=== PATIENT | male | born 1945 | race Caucasian/White ===

== ENCOUNTER → 2016-11-08 | Outpatient (CLI) | payer MEDICARE, OTHER ==
[2014-06-02 09:45] VITALS: BP 142/87
[~2016-11-08] MED LIST: CELE200C PO; CHLO1CAP50 PO; DOXA1TAB2 PO; OMEP20CA9 PO
--- NOTE | 2016-11-08 15:35 | RAD ---
Chest, 2 views, 11/08/2016: History: Cough, multiple myeloma Comparison is made to a study from 03/05/2016. The heart size and pulmonary vascularity are normal. No pulmonary infiltrates are seen. There is no evidence of pleural fluid. Mild spurring is present in the spine. IMPRESSION: No acute cardiopulmonary abnormality is detected.
== END | disposition home or self-care (01) ==
LOC: RAD 15:11
PROVIDERS: ATTEND Internal Medicine Hematology & Oncology
DX: C90.01 Multiple myeloma in remission (principal); R05 Cough
CPT/HCPCS: 71020

== ENCOUNTER → 2017-04-09 | Outpatient (CLI) | payer MEDICARE, OTHER ==
[2014-06-02 09:45] VITALS: BP 142/87
--- NOTE | 2017-04-09 16:36 | CARD ---
APPROVED REPORT EXAM: Two-dimensional and M-mode echocardiogram with Doppler and color Doppler. Other Information Quality : Average Rhythm : NSR INDICATION Fatigue Hypertension/HCVD 2D DIMENSIONS RVDd3.5 (2.9-3.5cm)Left Atrium(2D)3.6 (1.6-4.0cm) IVSd1.1 (0.7-1.1cm)Aortic Root(2D)3.6 (2.0-3.7cm) LVDd5.2 (3.9-5.9cm)LVOT Diameter2.3 (1.8-2.4cm) PWd1.1 (0.7-1.1cm)LVDs3.8 (2.5-4.0cm) FS (%) 24.0 %SV67.3 ml LVEF(%)50.2 (>50%) Aortic Valve AoV Peak Homer.90.4cm/sAoV VTI16.3cm AO Peak GR.3.3mmHgLVOT Peak Homer.84.6cm/s LVOT VTI 15.75cmAO Mean GR.2mmHg DARA (VMAX)3.12hi9RWZ (VTI)4.13cm2 Mitral Valve MV E Awfetfhk46.4cm/sMV DECEL GNGD655qg MV A Dyzmdpce60.6cm/sMV WDR09tg E/A Ratio0.8MV A Madbkwkd890gz MVA (PHT)2.27cm2 TDI E/Lateral E'8.2E/Medial E'8.9 Pulmonary Valve PV Peak Sorpvywe082.9cm/sPV Peak Grad.4mmHg Tricuspid Valve TR P. Adprcrqd638nw/sRAP JPVIQJIH8kkSz TR Peak Gr.46gsGyMSFM36uaZd Pulmonary Vein S1 Zzmwbact65.9cm/sD2 Zmzeayqb75.8cm/s LEFT VENTRICLE The left ventricle is normal size. There is normal left ventricular wall thickness. Left ventricle sy stolic function is normal. The Ejection Fraction is 50-55%. There is normal LV segmental wall motion. Tissue Doppler imaging reveals mild left ventricular diastolic dysfunction. Transmitral Doppler flow pattern is Grade I-abnormal relaxation pattern. There is no ventricular septal defect visualized. RIGHT VENTRICLE The right ventricle is normal size. The right ventricular systolic function is normal. ATRIA The left atrium size is normal. The right atrium size is normal. The interatrial septum is intact wit h no evidence for an atrial septal defect or patent foramen ovale as noted on 2-D or Doppler imaging. AORTIC VALVE The aortic valve is normal in structure and function. The aortic valve is trileaflet. Doppler and Col or Flow revealed no significant aortic regurgitation. There is no significant aortic valvular stenosi s. MITRAL VALVE The mitral valve is normal in structure and function. There is no mitral valve stenosis. Doppler and Color Flow revealed no mitral valve regurgitation noted. TRICUSPID VALVE The tricuspid valve is normal in structure and function. Doppler and Color Flow revealed trace tricus pid regurgitation. The PA pressure was estimated at 21 mmHg. There is no tricuspid valve stenosis. PULMONIC VALVE The pulmonic valve is not well visualized. Doppler and Color Flow revealed no pulmonic valvular regur gitation. There is no pulmonic valvular stenosis. GREAT VESSELS The aortic root is normal in size. The ascending aorta is normal in size. Normal pulmonary venous sierra w (Doppler). The IVC is normal in size and collapses >50% with inspiration. PERICARDIAL EFFUSION There is no evidence of significant pericardial effusion. Critical Notification Critical Value: No <Conclusion> Left ventricle systolic function is normal. The Ejection Fraction is 50-55%. There is normal LV segmental wall motion. Doppler and Color Flow revealed trace tricuspid regurgitation. The PA pressure was estimated at 21 mmHg. There is no evidence of significant pericardial effusion.
== END | disposition home or self-care (01) ==
LOC: ECHO 13:33
PROVIDERS: ATTEND Family Medicine
DX: I10 Essential (primary) hypertension (principal); I07.1 Rheumatic tricuspid insufficiency
CPT/HCPCS: 93306

== ENCOUNTER → 2017-09-09 | Outpatient (CLI) | payer MEDICARE, OTHER ==
[2014-06-02 09:45] VITALS: BP 142/87
--- NOTE | 2017-09-09 11:28 | RAD ---
Indication: Cough and shortness of air. Time of exam 11:20 AM Correlation is made with prior study from 11/08/2016. The heart size is stable. The lungs are hyperinflated consistent with COPD. There are chronic interstitial changes present. No parenchymal consolidation is identified. No effusion or pneumothorax is seen. Impression: COPD. No acute feature is detected.
== END | disposition home or self-care (01) ==
LOC: RAD 10:55
PROVIDERS: ATTEND Internal Medicine Critical Care Medicine
DX: J44.9 Chronic obstructive pulmonary disease, unspecified (principal)
CPT/HCPCS: 71020

== ENCOUNTER → 2017-10-08 | Outpatient (CLI) | payer MEDICARE, OTHER | END | disposition home or self-care (01) | LOC: CT 10:32 | DX: R05 Cough (principal); C90.00 Multiple myeloma not having achieved remission | CPT/HCPCS: 71250 ==

== ENCOUNTER → 2017-11-13 | Outpatient (CLI) | payer MEDICARE, OTHER | END | disposition home or self-care (01) | LOC: CT 10:39 | DX: C90.00 Multiple myeloma not having achieved remission (principal); J34.2 Deviated nasal septum; R05 Cough | CPT/HCPCS: 70486 ==

== ENCOUNTER → 2018-01-21 | Outpatient (CLI) | payer MEDICARE, OTHER | END | disposition home or self-care (01) | LOC: KCIC CT 10:01 | DX: J32.0 Chronic maxillary sinusitis (principal) | CPT/HCPCS: 70486 ==

== ENCOUNTER 2018-03-12 10:54 | Day surgery (SDC) | payer MEDICARE, OTHER ==
[2018-03-12] MEDS: IV RINGERS,LACTATED 1000ML 1,000 ML IV (07:00)
[~2018-03-12 10:54] MED LIST changes: -CELE200C PO; -CHLO1CAP50 PO; -DOXA1TAB2 PO; +EPINEPHrine NASAL 30 MG/30 ML BOTTLE; +GELATIN SPONGE SIZE 100.; +LIDOCAINE 1% PF 2 ML VIAL. ID; +MORPHINE SULFATE 4 MG/ML DISP.SYRIN. IV; +MUPIROCIN 2 % NASAL OINTMENT 22GM TUBE. NS; +NEOMY/BACITR/POLYMYXIN OINT PACKET. TP; -OMEP20CA9 PO; +ONDANSETRON PF 4 MG/2 ML VIAL. IV; +PHENYLEPHRINE 0.25% NASAL SPRAY 15ML BOTTLE. NS; +TRIAMCINOLONE ACETONIDE 40 MG/ML VIAL. IM; +fentaNYL PF VIAL 100 MCG/2 ML VIAL IV
[2018-03-12] MEDS ORDERED: FAMOTIDINE 20 MG/2 ML VIAL (11:23)
[2018-03-12] MEDS ORDERED: ONDANSETRON PF 4 MG/2 ML VIAL. (11:23)
[2018-03-12] MEDS ORDERED: LIDOCAINE 2% PF Vial for OR 5 ML VIAL. (11:23)
[2018-03-12] MEDS ORDERED: DEXAMETHASONE SOD PHOS 20 MG/5 ML VIAL. (11:23)
[2018-03-12] MEDS ORDERED: PROPOFOL 20 ML IV (11:23)
[2018-03-12] MEDS ORDERED: SUCCINYLCHOLINE 200 MG/10 ML VIAL. (11:24)
[2018-03-12] MEDS ORDERED: fentaNYL PF VIAL 100 MCG/2 ML VIAL (11:24)
[2018-03-12] MEDS ORDERED: ROCURONIUM 50 MG/5 ML VIAL. (11:24)
[2018-03-12] MEDS ORDERED: MIDAZOLAM HCL/PF 2 MG/2 ML VIAL. (11:24)
[2018-03-12] MEDS ORDERED: EPINEPHrine VIAL 30 MG/30 ML VIAL (12:21)
[2018-03-12] MEDS ORDERED: EPINEPHrine NASAL 30 MG/30 ML BOTTLE (12:22)
[2018-03-12] MEDS: OXYMETAZOLINE 0.05% NASAL SPRAY 30ML BOTTLE. NS (12:23)
[2018-03-12] MEDS: LIDOCAINE 1%/EPI 1:100,000 30 ML VIAL. IJ (12:23)
[2018-03-12] MEDS ORDERED: ePHEDrine PF IN SALINE 50 MG/5 ML DISP.SYRIN IV (12:25)
[2018-03-12] MEDS: EPINEPHrine NASAL 30 MG/30 ML BOTTLE (13:28)
[2018-03-12] MEDS ORDERED: SEVOFLURANE > 120 MINUTES. IH (13:50)
[2018-03-12] MEDS: fentaNYL PF VIAL 100 MCG/2 ML VIAL IV ×3 (14:13→15:21)
[2018-03-12] MEDS: PROCHLORPERAZINE 10 MG/2 ML VIAL. IV (14:13)
[2018-03-12] MEDS: oxyCODONE/APAP 5/325 1 TAB TABLET PO (15:16)
== END 2018-03-12 16:05 | disposition home or self-care (01) ==
LOC: SURG 10:54
DX: J34.2 Deviated nasal septum (principal); J34.3 Hypertrophy of nasal turbinates; J32.0 Chronic maxillary sinusitis; Z79.82 Long term (current) use of aspirin; Z79.899 Other long term (current) drug therapy; Z88.1 Allergy status to other antibiotic agents; I10 Essential (primary) hypertension; J44.9 Chronic obstructive pulmonary disease, unspecified; Z87.19 Personal history of other diseases of the digestive system; Z90.49 Acquired absence of other specified parts of digestive tract; K21.9 Gastro-esophageal reflux disease without esophagitis; M19.90 Unspecified osteoarthritis, unspecified site; F17.200 Nicotine dependence, unspecified, uncomplicated; Z85.79 Personal history of other malignant neoplasms of lymphoid, hematopoietic and related tissues
CPT/HCPCS: 30130; 87071; 87075; 87205; A7015; J0171; J0330; J0690; J0780; J1100; J2250; J2405; J2704; J3010; J3301; J3490; S0028

== ENCOUNTER → 2018-04-29 | Outpatient (CLI) | payer MEDICARE, OTHER | END | disposition home or self-care (01) | LOC: KCIC 10:51 | DX: R06.02 Shortness of breath (principal); J44.9 Chronic obstructive pulmonary disease, unspecified; J32.9 Chronic sinusitis, unspecified; K21.9 Gastro-esophageal reflux disease without esophagitis; Z87.19 Personal history of other diseases of the digestive system; Z85.79 Personal history of other malignant neoplasms of lymphoid, hematopoietic and related tissues; Z90.49 Acquired absence of other specified parts of digestive tract | CPT/HCPCS: 71046 ==

== ENCOUNTER → 2018-05-04 | Outpatient (CLI) | payer MEDICARE, OTHER | END | disposition home or self-care (01) | LOC: ECHO 08:50 | DX: R06.09 Other forms of dyspnea (principal); R53.83 Other fatigue; J44.9 Chronic obstructive pulmonary disease, unspecified; J32.9 Chronic sinusitis, unspecified; K21.9 Gastro-esophageal reflux disease without esophagitis; Z87.19 Personal history of other diseases of the digestive system; Z90.49 Acquired absence of other specified parts of digestive tract; Z87.891 Personal history of nicotine dependence; Z85.79 Personal history of other malignant neoplasms of lymphoid, hematopoietic and related tissues | CPT/HCPCS: 93306 ==

== ENCOUNTER → 2019-04-19 | Outpatient (CLI) | payer MEDICARE, OTHER ==
[~2019-04-19] MED LIST changes: +ACYC400T PO; +AMOX1TAB61 PO; +ASPI325T8 PO; +CELE200C PO; +CHLO1CAP50 PO; +DOCU-109 PO; +DOXA1TAB2 PO; -EPINEPHrine NASAL 30 MG/30 ML BOTTLE; -GELATIN SPONGE SIZE 100.; +HYDR12.58 PO; -LIDOCAINE 1% PF 2 ML VIAL. ID; -MORPHINE SULFATE 4 MG/ML DISP.SYRIN. IV; -MUPIROCIN 2 % NASAL OINTMENT 22GM TUBE. NS; -NEOMY/BACITR/POLYMYXIN OINT PACKET. TP; +OMEP20CA10 PO; +ONDA4TAB10 SL; -ONDANSETRON PF 4 MG/2 ML VIAL. IV; +OXYC1TAB15 PO; -PHENYLEPHRINE 0.25% NASAL SPRAY 15ML BOTTLE. NS; +SODI1PAC12 NS; +SPIR25TA5 PO; -TRIAMCINOLONE ACETONIDE 40 MG/ML VIAL. IM; -fentaNYL PF VIAL 100 MCG/2 ML VIAL IV
--- NOTE | 2019-04-22 10:08 | KCIC ---
Cervical spine radiograph 04/22/2019 INDICATION: Neck pain and right shoulder pain. COMPARISON: None available. TECHNIQUE: AP, lateral, odontoid and Fuchs view of the cervical spine are provided. FINDINGS: Cervical spine is visualized from the craniocervical junction through cervicothoracic junction. There is straightening of the normal cervical lordosis. There is minimal anterolisthesis of C3 on C4. There is minimal retrolisthesis of C5 on C6 and C6 on C7. Vertebral body heights are maintained. No acute fracture is identified. There is moderate facet arthropathy in the mid cervical spine. There is moderate to advanced disc height loss at C5-C6 and C6-C7 with endplate sclerosis and remodeling. Marginal osteophytosis is noted at C3-C4, C4-C5, C5-C6 and C6-C7. Spinous processes appear intact. There is no prevertebral soft tissue swelling. Lateral masses of C1 articulate appropriately with the C2 vertebral body. Dens appears intact. There is moderate uncovertebral joint disease at C4-C5 and C5-C6. Advanced uncovertebral joint disease identified at C6-C7. Partial visualization of a right chest wall catheter. IMPRESSION: Moderate to advanced cervical spondylosis, most prominent at C5-C6 and C6-C7. Findings are described in detail above. Electronically signed by: Fidelina Mario MD (04/22/2019 10:05 AM) [id number]
== END | disposition home or self-care (01) ==
LOC: KCIC 11:26 → MERGE 11:26
PROVIDERS: ATTEND Family Medicine
DX: M47.812 Spondylosis without myelopathy or radiculopathy, cervical region (principal); M12.88 Other specific arthropathies, not elsewhere classified, other specified site
CPT/HCPCS: 72040

== ENCOUNTER → 2019-07-01 | Outpatient (CLI) | payer MEDICARE, OTHER ==
[2018-03-12 15:44] VITALS: BP 119/80
[~2019-07-01] MED LIST changes: +CALC200T19 PO; +DEXA4TAB63 PO; +EMLA; +ERGO500027 PO; +GABA-585 PO; +HYDR-2761 PO; +IOHEXOL 180 MG/ML 10 ML VIAL. ONE; +MONT10TA49 PO; +OMEP40CA5 PO; +PRED20TA PO; +SACC250C PO; +TIZA4TAB2 PO; +ZOLP5TAB PO; +loratidine; +methylPREDNISolone ACETATE 40 MG/ML VIAL. ONE; +methylPREDNISolone ACETATE 80 MG/ML VIAL. ONE
--- NOTE | 2019-07-02 03:19 | PAIN ---
DATE OF SERVICE: 07/01/2019 INITIAL CONSULTATION FOR PAIN CLINIC CHIEF COMPLAINT: Neck and right upper extremity pain. HISTORY OF PRESENT ILLNESS: This is a 73-year-old male, who presents with history of pain in the base of neck and right upper extremity, going on since April of this year. The result is not the result of any specific injury or action he is aware of, but it has been getting worse with time. Weightbearing, repetitive motion of the right upper extremity using his arm over his head, reaching for items and especially with bearing weight or repetitive motions, be even driving a car with his right hand. The patient reports it does not awaken him from sleep at night, does not affect his bowel or bladder control or his ability to walk, but pain has been getting worse with time. He has had some massage therapies done, physical therapy done as well, which helps temporarily, but does not decrease the pain persistently. The patient has been taking hydrocodone, which has been helping significantly, taking at least one of these a day. The patient reports a disability rating from 0-10, 10 being the worst, as 0 in most categories, 1 with recreation and social activity, 0 in life-support activity, self-care, sexual behavior and family home responsibilities and occupation activities. The patient did have an MRI scan of the cervical spine showing C6-C7 posterior disk osteophyte complex with a central disk protrusion, moderate uncovertebral joint disease with jyqj-id-docnyzzy right and mild left neural foraminal stenosis at C5-C6 showing posterior disk osteophyte complex with central disk extrusion as well and mild spinal canal stenosis exacerbated by ligamentum flavum enfolding mild to moderate bilaterally. PAST MEDICAL HISTORY: Significant for shortness of breath, hypertension, hearing loss, arthritis, history of multiple myeloma, status post bone marrow transplant and chemotherapy. SURGERY: Include left knee surgery, hernias repaired bilaterally in 2004 as well as cholecystectomy in 2004. CURRENT MEDICATIONS: Include Ambien, prednisone, acyclovir, spironolactone, Augmentin, Florastor, tizanidine, montelukast, hydrocodone, gabapentin, vitamin D, dexamethasone, omeprazole, Celebrex, Decadron and calcium. ALLERGIES: The patient has no known drug allergies. FAMILY HISTORY: Kidney disease in the patient's father, heart disease in the patient's mother, heart disease and cancer in siblings as well. SOCIAL HISTORY: The patient does not drink alcohol, does not use any illegal, illicit or recreational drugs. Does not smoke, quit in 1979. REVIEW OF SYSTEMS: The patient's review of systems is positive for those items mentioned in history of present illness. All systems reviewed and otherwise negative. It is complete, full and well documented on the patient's chart. PHYSICAL EXAMINATION: VITAL SIGNS: The patient's blood pressure is 141/95, pulse 62, respirations are 17, temperature is 98.2 degrees Fahrenheit, height is 5 feet 9 inches and weight is 162 pounds. GENERAL: The patient is awake, alert, oriented, appropriate, has very pleasant demeanor. HEENT: Head shows normocephalic, atraumatic. Extraocular movements are intact and symmetrical. Oral cavity: Mucous membranes are moist and pink. Dentition is intact. NECK: Shows anterior throat supple without palpable lymphadenopathy noted. Swallow reflex symmetrical. CHEST: Shows normal on inspection. Breath sounds clear to auscultation bilaterally. HEART: Shows S1, S2 clear. ABDOMEN: Soft, nontender, nondistended. No palpable organomegaly is noted. No rebound or guarding demonstrated. BACK: Shows spine grossly in midline, normal-appearing cervical lordotic curvature and thoracic kyphotic curvature. Cervical paraspinous muscle shows symmetrical on inspection with palpation shows some moderate tenderness in the inferior aspect of the cervical paraspinous musculature, only on the right though and only in the inferior aspect and into the superior medial trapezius on the right, but without trigger points, without radiation. The patient has good rotational motion of the cervical spine, both laterally greater than 45 degrees, closer to 90 degrees right and left as well as full extension, full forward flexion without exacerbation of pain. EXTREMITIES: The patient's upper extremities show deep tendon reflexes 2+ in the biceps and triceps tendons. 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 Peripheral pulses are 2+ radial in distribution. No peripheral edema is noted. Shoulder shrug is strong and intact without loss of strength on resistance with some minor pain in the base of the neck on the right side only with resistance. This is true with abduction at 90 degrees, but without loss of strength as well. SKIN: Shows warm and dry, good turgor. No edema. No sores, rashes or bruises throughout. IMPRESSION: 1. This is a 73-year-old male with history of pain in the base of the neck and right upper extremity in a radicular fashion. 2. MRI scan of cervical spine as noted. 3. History of multiple myeloma. 4. Hypertension. 5. Arthritis. PLAN: Options were discussed with the patient, including conservative medical managements, physical therapies and interventional techniques. He would like to pursue interventional techniques. We discussed a cervical epidural steroid injection using description as well as anatomical models to describe the procedure. Risks were then discussed, including but not limited to bleeding, infection, possibility of epidural hematoma, subsequent neurological compromise, dural puncture, headaches, spinal cord and/or nerve damage, side effects of steroid medication and poor results regarding pain control. The patient understands and wished to proceed. The patient will return to the clinic in approximately 2 weeks for followup. He is counseled on return appointment, activity level and side effects to be aware of. DIAGNOSES: Cervical radiculopathy with cervical degenerative disk disease. PROCEDURE: Cervical epidural steroid injection, translaminar approach C6-C7 level using C-arm fluoroscopic guidance under sterile prep and drape using local anesthetic. MEDICATION INJECTED: A total of 120 mg Depo-Medrol plus 5 mL of preservative-free normal saline and 2 mL of contrast. CONDITION AT DISCHARGE: Stable. The patient tolerated the procedure well, had no complications. JAROD FABIAN MD DR: RADHA/lola JOB#: [id number] / [id number] GEO Brunson MD
== END ==
LOC: PNCL 10:29
PROVIDERS: ATTEND Anesthesiology
DX: M50.123 Cervical disc disorder at C6-C7 level with radiculopathy (principal); I10 Essential (primary) hypertension; Z87.39 Personal history of other diseases of the musculoskeletal system and connective tissue; Z98.890 Other specified postprocedural states; Z90.49 Acquired absence of other specified parts of digestive tract; Z87.891 Personal history of nicotine dependence
CPT/HCPCS: 62321; J1030; J1040; Q9965

== ENCOUNTER → 2019-07-20 | Outpatient (CLI) | payer MEDICARE, OTHER ==
[2018-03-12 15:44] VITALS: BP 119/80
[~2019-07-20] MED LIST changes: +OMEP40CA45 PO; -OMEP40CA5 PO
--- NOTE | 2019-07-20 22:51 | PAIN ---
DATE OF SERVICE: 07/20/2019 PROGRESS NOTE FOR PAIN CLINIC DIAGNOSES: Cervical radiculopathy with cervical degenerative disk disease. HISTORY OF PRESENT ILLNESS: The patient is a 73-year-old male who returns for followup status post cervical epidural steroid injection x 1. The patient reports only about 10% to 15% improvement in the base of the neck and right upper extremity. The patient reports still significant pain in the base of the neck, right arm and right shoulder, worse with activity, lifting items, reaching and general daily activities. The patient reports the pain can be sharp in the base of the neck, but dull and shooting in the right arm. The patient reports it is a 6 on a scale of 10 at all times, average, worst and least over the last week and is a 6 today. The patient reports it does not awaken him from sleep; however, no new motor or sensory deficits, no new bowel or bladder incontinence or other complaints. PHYSICAL EXAMINATION: VITAL SIGNS: The patient's blood pressure 130/80, pulse 78, respirations are 16, temperature 97.9 degrees Fahrenheit, height is 5 feet 9 inches, weight is 165 pounds. GENERAL: The patient is awake, alert, oriented, appropriate, very pleasant demeanor. HEENT: Shows normocephalic, atraumatic. Extraocular movements are intact and symmetrical. Oral cavity: Mucous membranes moist and pink. Dentition is intact. NECK: Shows anterior throat supple without palpable lymphadenopathy noted. Swallow reflex symmetrical. CHEST: Shows normal on inspection. Breath sounds clear to auscultation bilaterally. HEART: Shows S1, S2 clear. ABDOMEN: Soft, nontender, nondistended. BACK: Shows spine grossly in the midline. Normal appearing thoracic kyphosis and cervical lordotic curvature. Cervical paraspinous muscle shows symmetrical on inspection, on palpation shows some moderate tenderness bilaterally, but only diffusely without significant radiation. The patient has good rotational motion of cervical spine, both laterally greater than 45 degrees closer to 90 degrees as well as full extension, full forward flexion without significant difficulty. EXTREMITIES: Upper extremities show deep tendon reflexes 2+ in the biceps, triceps tendons. Motor exam remains strong with 5/5 sales exhibitor strength, bicep and tricep flexion bilaterally. Peripheral pulses are 2+ radial distribution. No peripheral edema is noted bilaterally. Options were discussed with the patient. The patient's old chart was reviewed as his current medication regimen updated. Current review of systems updated today as well. We will proceed with a second cervical epidural steroid injection today with fluoroscopic guidance. Risks were again discussed including, but not limited to bleeding, infection, possibility of epidural hematoma, subsequent neurological compromise, dural puncture, headaches, spinal cord and/or nerve damage, side effects of steroid medication and poor results regarding pain control. The patient understands and wished to proceed. The patient will return to clinic in approximately 2 weeks for followup. He was counseled on return appointment, activity level and side effects to be aware of. DIAGNOSES: Cervical radiculopathy with cervical degenerative disk disease. PROCEDURE: Cervical epidural steroid injection, translaminar approach at the C6-C7 level using C-arm fluoroscopic guidance under sterile prep and drape using local anesthetic. MEDICATION INJECTED: A total of 120 mg Depo-Medrol plus 5 mL of preservative-free normal saline and 2 mL of contrast. CONDITION AT DISCHARGE: Stable. The patient tolerated procedure well, had no complications. JAROD FABIAN MD DR: RADHA/lola JOB#: [id number] / [id number]
== END ==
LOC: PNCL 09:36
PROVIDERS: ATTEND Anesthesiology
DX: M50.123 Cervical disc disorder at C6-C7 level with radiculopathy (principal)
CPT/HCPCS: 62321; J1030; J1040; Q9965

== ENCOUNTER → 2019-08-02 | Outpatient (CLI) | payer MEDICARE, OTHER ==
[2018-03-12 15:44] VITALS: BP 119/80
[~2019-08-02] MED LIST changes: -IOHEXOL 180 MG/ML 10 ML VIAL. ONE; -methylPREDNISolone ACETATE 40 MG/ML VIAL. ONE; -methylPREDNISolone ACETATE 80 MG/ML VIAL. ONE
--- NOTE | 2019-08-03 13:24 | KCIC ---
SHOULDER 2+V LEFT History: Acute left shoulder pain. Technique: 3 views left shoulder. Comparison: None. Findings: Normal alignment of the glenohumeral and acromioclavicular joints. No fracture. Soft tissues unremarkable. Patchy left basilar opacity. Impression: 1. No acute osseous abnormality. 2. Patchy left basilar opacity, may represent atelectasis or consolidation. PA and lateral view of the chest can further evaluate if clinically indicated. Electronically signed by: Raza Aviles DO (08/03/2019 1:21 PM) [facility]
== END | disposition home or self-care (01) ==
LOC: KCIC 10:24
PROVIDERS: ATTEND Family Medicine
DX: M25.512 Pain in left shoulder (principal)
CPT/HCPCS: 73030

== ENCOUNTER → 2019-08-04 | Outpatient (CLI) | payer MEDICARE, OTHER ==
[2018-03-12 15:44] VITALS: BP 119/80
[~2019-08-04] MED LIST changes: +IOHEXOL 180 MG/ML 10 ML VIAL. ONE; +methylPREDNISolone ACETATE 40 MG/ML VIAL. ONE; +methylPREDNISolone ACETATE 80 MG/ML VIAL. ONE
--- NOTE | 2019-08-04 15:27 | PAIN ---
DATE OF SERVICE: 08/04/2019 PROGRESS NOTE FOR PAIN CLINIC DIAGNOSIS: Cervical radiculopathy with cervical degenerative disk disease. HISTORY OF PRESENT ILLNESS: The patient is a 73-year-old male who returns for followup status post cervical epidural steroid injection x 2. The patient reports about 20% overall improvement in the neck and the right shoulder pain. The patient reports still significant pain, but much improved over time. The patient reports he is sleeping better at night, does not awaken him from sleep, there has been increase in his activity; he is doing more motions and activity with his upper extremities. The patient reports still base of the right neck is more painful, but the left shoulder is painful as well. The patient had recent plain films of the left shoulder showing no acute abnormalities. No osseous abnormalities. The patient reports no new changes, no new deficits. PHYSICAL EXAMINATION: VITAL SIGNS: The patient's blood pressure is 135/96, pulse 84, respirations 18, temperature 98.6 degrees Fahrenheit, height is 5 feet 9 inches, weight is 165 pounds. The patient rates his pain as a 5 on a scale of 10 at its worst in the last week, on average is 2, and 2 at its least and is 2 today. The patient describes it as on and off in intensity, tingling, burning and aching. GENERAL: The patient is awake, alert, oriented, appropriate, very pleasant demeanor. HEENT: Head shows normocephalic, atraumatic. Extraocular movements are intact and symmetrical. Oral cavity: Mucous membranes moist and pink. Dentition is intact. NECK: Shows anterior throat supple without palpable lymphadenopathy noted. Swallow reflex symmetrical. CHEST: Shows normal on inspection. Breath sounds are clear to auscultation bilaterally. HEART: Shows S1, S2 clear. No murmurs auscultated. ABDOMEN: Soft, nontender, nondistended. No palpable organomegaly is noted. No rebound or guarding demonstrated. BACK: Shows spine grossly in the midline. Normal appearing thoracic kyphosis and cervical lordotic curvature. Cervical paraspinous muscle shows symmetrical on inspection, on palpation shows some moderate tenderness diffusely bilaterally, but only diffusely without significant radiation. The patient shows good rotational motion of cervical spine, both laterally as well as extension and flexion without significant difficulty. EXTREMITIES: Upper extremities show deep tendon reflexes 2+ in the biceps, triceps tendons. 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 Peripheral pulses are 2+ radial distribution. No peripheral edema is noted. Options were discussed with the patient. The patient's old chart was reviewed as his current medication regimen updated. Current review of systems updated today as well. We will proceed with a third in the series of cervical epidural steroid injection today with fluoroscopic guidance. Risks were again discussed including, but not limited to bleeding, infection, possibility of epidural hematoma, subsequent neurological compromise, dural puncture, headaches, spinal cord and/or nerve damage, side effects of steroid medication and poor results regarding pain control. The patient understands and wished to proceed. The patient will return to clinic in approximately 2 weeks for followup. He was counseled on return appointment, activity level and side effects to be aware of. DIAGNOSIS: Cervical radiculopathy with cervical degenerative disk disease. PROCEDURE: Cervical epidural steroid injection, translaminar approach C6-C7 level using C-arm fluoroscopic guidance under sterile prep and drape using local anesthetic. MEDICATION INJECTED: A total of 120 mg Depo-Medrol plus 5 mL of preservative-free normal saline and 2 mL of contrast. CONDITION AT DISCHARGE: Stable. The patient tolerated the procedure well, had no complications. JAROD FAIBAN MD DR: RADHA/nts JOB#: [id number] / [id number]
== END ==
LOC: PNCL 09:15
PROVIDERS: ATTEND Anesthesiology
DX: M50.123 Cervical disc disorder at C6-C7 level with radiculopathy (principal)
CPT/HCPCS: 62321; J1030; J1040; Q9965

== ENCOUNTER → 2019-10-18 | Outpatient (CLI) | payer MEDICARE, OTHER ==
[2018-03-12 15:44] VITALS: BP 119/80
[~2019-10-18] MED LIST changes: -IOHEXOL 180 MG/ML 10 ML VIAL. ONE; -OMEP20CA10 PO; +OMEP20CA16 PO; -methylPREDNISolone ACETATE 40 MG/ML VIAL. ONE; -methylPREDNISolone ACETATE 80 MG/ML VIAL. ONE
--- NOTE | 2019-10-18 10:56 | KCIC ---
MR of the left shoulder HISTORY: Left shoulder pain, decreased range of motion for 2 or 3 months. TECHNIQUE: Routine multiplanar sequences are obtained. FINDINGS: Acromioclavicular joint is mildly degenerative. Full-thickness rotator cuff tear at the supraspinatus tendon involving most of the tendon, measuring about 4 cm AP diameter and with 3.5 cm retraction. Partial tearing of the infraspinatus tendon. Complete rupture of the subscapularis tendon. Iyvf-rl-enlereke muscle atrophy. Mild fluid in the glenohumeral joint and the subdeltoid bursa. Mild degenerative spurring at the glenohumeral joint. Mild distortion as well as signal at the base of the superior labrum compatible with a degenerative tear. Somewhat limited evaluation of the anterior and posterior labrum due to motion degradation on the axial images but no definite additional labral tear. Biceps tendon is not visualized. No acute fracture or aggressive bone destruction. No acute soft tissue abnormality. IMPRESSION: 1. Complete or near complete supraspinatus tendon rupture with retraction. Complete subscapularis tendon rupture. Partial tearing through the infraspinatus tendon. 2. Superior labral tear. 3. Nonvisualized biceps tendon, presumably torn. Electronically signed by: Chad Faulkner MD (10/18/2019 10:53 AM) [id number]
== END | disposition home or self-care (01) ==
LOC: KCIC MRI 09:12
PROVIDERS: ATTEND Family Medicine
DX: S43.432A Superior glenoid labrum lesion of left shoulder, initial encounter (principal); S46.812A Strain of other muscles, fascia and tendons at shoulder and upper arm level, left arm, initial encounter; M19.012 Primary osteoarthritis, left shoulder; M75.122 Complete rotator cuff tear or rupture of left shoulder, not specified as traumatic; X58.XXXA Exposure to other specified factors, initial encounter; Y93.89 Activity, other specified; Y92.89 Other specified places as the place of occurrence of the external cause; Y99.8 Other external cause status
CPT/HCPCS: 73221

== ENCOUNTER → 2020-04-20 | Outpatient (CLI) | payer MEDICARE, OTHER ==
[2018-03-12 15:44] VITALS: BP 119/80
--- NOTE | 2020-04-20 15:13 | KCIC ---
MRI Lumbar Spine without contrast History: Lumbago, right sciatica Technique: Multiplanar, multi sequential noncontrast MR imaging was performed of the lumbar spine. Comparison: None Findings: There is transitional anatomy. There is assumption of 5 lumbar type vertebral bodies. For this report, most inferior fully formed intervertebral disc space is considered L4-5, rudimentary intervertebral disc space at what is considered L5-S1. There is advanced degenerative disc disease at L2-3, on the right at what is considered L5-S1, to a lesser degree at L1-2 and L3-4. Conus terminates at the inferior aspect of L1. There is mild dextroscoliosis centered near L1-L2. AP alignment is within normal limits. There is mild L4-5 endplate edema, also minimally about superior L3 Schmorl's node probably reactive/degenerative in etiology. There is a 1.2 cm T2 hyperintense lesion of the visualized left kidney most likely a cyst. T12-L1: Spinal canal and neural foramina are adequate. L1-L2: There is shallow protrusion more eccentric to the right lateral recess about 2 mm AP. There is mild buckling of the ligamentum flavum and mild to moderate facet degenerative change greater on the left. Spinal canal is adequate. Right neural foramen is adequate. There is moderate to severe narrowing of the left neural foramen by facet. L2-L3: There is minimal disc osteophyte complex. There is mild buckling of the ligamentum flavum and mild to moderate left and right facet degenerative change. There is mild narrowing of the far left lateral recess. Right neural foramen is adequate. There is moderate narrowing of the left neural foramen, disc osteophyte complex contacting undersurface exiting left L2 nerve root in the distal neural foramen and proximal left extraforaminal region. L3-L4: There is minimal disc osteophyte complex and shallow bulge/protrusion. There is mild buckling of the ligamentum flavum. There is moderate facet degenerative change. Spinal canal is adequate. Left neural foramen is adequate. There is fairly severe narrowing of the right neural foramen primarily from facet although also disc osteophyte complex inferiorly. L4-L5: There is minimal disc osteophyte complex and bulge. There is [id number] facet degenerative change greater on the right. Spinal canal is adequate. Left neural foramen is adequate. There is severe narrowing of the right neural foramen, impingement of the exiting right L4 nerve root by disc osteophyte complex, also posterior narrowing by facet. L5-S1: Neural foramina and spinal canal are adequate. Impression: 1. There is transitional anatomy of the lumbar spine as described, rudimentary intervertebral disc space at what is considered L5-S1, most inferior fully formed intervertebral disc space considered L4-5. There is more advanced degenerative disc disease at L4-5 and L2-3, to a lesser degree at other levels. 2. There is significant neural foramina compromise on the right at L4-5 and L3-4 and on the left at L1-2, to a somewhat lesser degree on the left at L2-3. 3. There is no significant lumbar spinal stenosis, mild narrowing of the far left lateral recess at L2-3. Electronically signed by: Franklyn Mari MD (04/20/2020 3:10 PM) [id number]
== END | disposition home or self-care (01) ==
LOC: KCIC MRI 13:30
PROVIDERS: ATTEND Family Medicine
DX: M51.36 Other intervertebral disc degeneration, lumbar region (principal); M51.26 Other intervertebral disc displacement, lumbar region; M48.061 Spinal stenosis, lumbar region without neurogenic claudication; M51.46 Schmorl's nodes, lumbar region; M25.78 Osteophyte, vertebrae; Q76.49 Other congenital malformations of spine, not associated with scoliosis
CPT/HCPCS: 72148

== ENCOUNTER → 2020-05-04 | Outpatient (CLI) | payer MEDICARE, OTHER ==
[2018-03-12 15:44] VITALS: BP 119/80
[~2020-05-04] MED LIST changes: +IOHEXOL 180 MG/ML 10 ML VIAL. ONE; +methylPREDNISolone ACETATE 40 MG/ML VIAL. ONE; +methylPREDNISolone ACETATE 80 MG/ML VIAL. ONE
--- NOTE | 2020-05-04 10:54 | PAIN ---
DATE OF SERVICE: 05/04/2020 PROGRESS NOTE FOR PAIN CLINIC DIAGNOSES: 1. Cervical radiculopathy with cervical degenerative disk disease. 2. Lumbar radiculopathy with lumbar degenerative disk disease. HISTORY OF PRESENT ILLNESS: The patient is a 74-year-old male, who returns for followup status post previous cervical epidural steroid injections, last seen in 07/2019. The patient did very well with about 90% improvement in his neck and shoulders. The patient reports his pain now has changed into the low back and into the right lower extremity, mostly in the posterior gluteus, posterolateral thigh and lateral anterior thigh. The patient reports this has been present for several months now. He did get an MRI scan, which we discussed with him showing severe advanced degenerative disk disease, L4-L5, with contact of the right L4 nerve root by exiting, narrowing and right neural foramen impingement of the right exiting L4 nerve root. The patient reports pain in the low back and right lower extremity. No specific injury or accident that he is aware of; it just came up with time; worse with walking, standing and changing positions; better with sitting or lying down; does not awaken him from sleep at night. The patient reports no bowel or bladder incontinence. Reports the pain is constant and aching in the right leg, shooting and dull at times in the back with radiating pain in the right leg. The patient reports a 9 on a scale of 10 at its worst over the past week, 7 on an average and 4 at its least and is a 7 today. PHYSICAL EXAMINATION: VITAL SIGNS: The patient's blood pressure is 123/83, pulse 65, respirations are 16, temperature 98.1 degrees Fahrenheit, weight is 174 pounds. GENERAL: The patient is awake, alert, oriented, appropriate, very pleasant demeanor. HEENT: Shows normocephalic, atraumatic. Extraocular movements are intact and symmetrical. Oral cavity: Mucous membranes moist and pink; dentition is intact. NECK: Shows anterior throat supple without palpable lymphadenopathy noted. Neck shows full rotational motion of the cervical spine, both laterally as well as extension and flexion, without significant difficulty. CHEST: Shows normal on inspection. Breath sounds are clear bilaterally. No rales, rhonchi or wheezes auscultated. HEART: Shows S1, S2 clear. No murmurs auscultated. ABDOMEN: Soft, nontender and nondistended. No palpable organomegaly is noted. No rebound or guarding demonstrated. BACK: Shows spine grossly in midline. Lumbar paraspinous musculature shows symmetrical on inspection, on palpation shows some moderate tenderness diffusely bilaterally, only diffusely throughout the upper, middle and lower distributions of paraspinous muscles, but without radiation. No tenderness over the spinous processes, sacrum or sacroiliac regions. EXTREMITIES: Lower extremities show deep tendon reflexes 2+ in the patellar and 1+ tendo-calcaneus tendons. Motor exam is 5/5 with dorsiflexion, extension, quadriceps and hamstring flexion, and symmetrical. Peripheral pulses are 1+ posterior tibial. No peripheral edema is noted. Options were discussed with the patient. The patient's old chart was reviewed as his current medication regimen updated. Current review of systems updated today as well. We will proceed with a lumbar epidural steroid injection today with fluoroscopic guidance. Risks were again discussed including, but not limited to bleeding, infection, possibility of epidural hematoma, subsequent neurological compromise, dural puncture, headaches, spinal cord and/or nerve damage, side effects of steroid medication and poor results regarding pain control. The patient understands and wished to proceed. The patient will return to the clinic in approximately 2 weeks for followup. He was counseled as to the return appointment, activity level and side effects to be aware of. DIAGNOSIS: Lumbar radiculopathy with lumbar degenerative disk disease. PROCEDURE: Lumbar epidural steroid injection, translaminar approach, L4-L5 level, using C-arm fluoroscopic guidance under sterile prep and drape using local anesthetic. MEDICATIONS INJECTED: A total of 120 mg of Depo-Medrol plus 10 mL of preservative-free normal saline and 2 mL of contrast. CONDITION AT DISCHARGE: Stable. The patient tolerated procedure well, had no complications. JAROD FABIAN MD DR: RADHA/lola JOB#: [id number] / [id number]
== END | disposition home or self-care (01) ==
LOC: PNCL 09:22
PROVIDERS: ATTEND Anesthesiology
DX: M51.16 Intervertebral disc disorders with radiculopathy, lumbar region (principal); M50.10 Cervical disc disorder with radiculopathy, unspecified cervical region; Z88.8 Allergy status to other drugs, medicaments and biological substances; Z79.899 Other long term (current) drug therapy
CPT/HCPCS: 62323; J1030; J1040; Q9965

== ENCOUNTER → 2020-05-18 | Outpatient (CLI) | payer MEDICARE, OTHER ==
[2018-03-12 15:44] VITALS: BP 119/80
--- NOTE | 2020-05-18 10:01 | PDOC ---
Progress Note - Pain Clinic Date of Service: DOS: DATE: 05/18/20 TIME: 09:57 Diagnosis: Dx: Cervical radiculopathy with cervical degenerative disc disease Lumbar radiculopathy with lumbar degenerative disc disease History or Present Illness: HPI: 74-year-old male returns follow-up status post cervical epidural injections x3 with good results and now lumbar epidural to injections x1 .patient reports about 25% improvement after the first injection with still pain in the low back and the right side much better for the first week or so after about 2 weeks the pain beginning to return initially was about 75% better but now is about 25% overall. Patient which is gradually slowly increasing but he has been doing much better with distance walking and work activities household activities as well as travel with greater ease and comfort. Patient ports no new motor or sensory deficits no new bowel or bladder concerns or complaints. Patient reports is a 6 on a scale of 10 is worse over the past week for an average 3 this least is a 3 today patient scribes pain is sharp and aching in the low back and the right leg mostly the posterior gluteus lateral thigh occasionally the anterior thigh. Patient 21 sleeping well at night does not awaken from sleep better with sitting or laying down worse with walking standing. Physical Exam: VS: Blood pressure is 143/98 pulse 69 respirations are 18 temperature is 98.3 F weight is 173 pounds PE: PHYSICAL EXAMINATION: GENERAL: The patient is awake, alert, oriented, appropriate, very pleasant demeanor HEENT: Shows normocephalic, atraumatic. Extraocular movements are intact and symmetrical. Oral cavity: Mucous membranes moist and pink. Dentition is intact. NECK: Shows anterior throat supple without palpable lymphadenopathy noted. Swallow reflex symmetrical. CHEST: Shows normal on inspection. Breath sounds are clear bilaterally. HEART: Shows S1, S2 clear. No murmurs auscultated, no rales rhonchi or wheezes auscultated. ABDOMEN: Soft, nontender, nondistended. No palpable organomegaly is noted. BACK: Shows spine grossly in the midline. Normal-appearing cervical lordotic c urvature. There is slightly increased thoracic kyphosis, some minor flattening of the lumbar lordotic curvature. Lumbar paraspinous muscles show symmetrical on inspection, on palpation shows some moderate tenderness diffusely throughout the upper, middle and lower distribution of the paraspinous muscles bilaterally but without specific trigger points, without radiation of pain. The patient has good rotational motion of the lumbar spine, both laterally as well as extension and flexion without significant difficulty. No tenderness over the spinous processes, sacrum or sacroiliac regions. EXTREMITIES: Lower extremities show deep tendon reflexes 2+ in the patellar and tendo calcaneus tendons. Motor exam is 5 on a scale of 5 with right dorsiflexion, extension, quadriceps and hamstring flexion and 5/5 on the left. Peripheral pulses are 1+ posterior tibial. No peripheral edema is noted bilaterally. Lower extremities are warm and dry to touch, equal in color and appearance. SKIN: Shows warm and dry, good turgor. No edema. No sores, rashes or bruising throughout. Procedure: Procedure: Options were discussed with the patient. Patient's old chart was reviewed his his current medication regimen updated current review of systems updated today as well. We will proceed with a second in a series lumbar epidural steroid injection today with fluoroscopic guidance risks again discussed including but not limited to bleeding infection possibility of epidural hematoma subsequent neurological compromise dural puncture headache spinal cord and or nerve damage side effects of steroid medication and poor results regarding pain control. Patient understands wished to proceed. Patient will return to clinic in approximate 2 weeks for follow up was counseled as to return appointment activity level and side effects to be aware of. Medication Injected: Med Injected: Procedure is lumbar epidural steroid injection under local anesthetic using sterile prep and drape at the L4-5 level using C-arm fluoroscopic guidance in both AP and lateral views medications injected is 120 mg Depo-Medrol + 10 mL preservative-free normal saline and 2 mL Isovue for contrast- condition at discharge is stable patient tolerated procedure well had no complications. Condition at Discharge: Condition at Discharge: Condition at discharge is stable patient tolerated the procedure well had no complications JAROD FABIAN MD May 18, 2020 10:01
== END | disposition home or self-care (01) ==
LOC: PNCL 09:01
PROVIDERS: ATTEND Anesthesiology
DX: M51.16 Intervertebral disc disorders with radiculopathy, lumbar region (principal); M50.10 Cervical disc disorder with radiculopathy, unspecified cervical region; Z98.890 Other specified postprocedural states; Z88.8 Allergy status to other drugs, medicaments and biological substances
CPT/HCPCS: 62323; J1030; J1040; Q9965

== ENCOUNTER → 2020-06-01 | Outpatient (CLI) | payer MEDICARE, OTHER ==
[2018-03-12 15:44] VITALS: BP 119/80
--- NOTE | 2020-06-01 11:25 | PDOC ---
Progress Note - Pain Clinic Date of Service: DOS: DATE: 06/01/20 TIME: 11:22 Diagnosis: Dx: Cervical radiculopathy with cervical degenerative disc disease Lumbar radiculopathy with lumbar degenerative disc disease History or Present Illness: HPI: 74-year-old male returns follow-up status post lumbar epidural steroid injection x2. Patient reports about 75% improvement in the low back and right lower extremity pain. Patient reports still some pain in the low back and right leg rated as a 2 on a scale of 10 is worst average and least is a 2 on a scale of 10 today. Patient which is aching and dull radiating occasionally into the right lower extremity into the anterior thigh but mostly in the back itself patient reports is worse with walking standing changing positions better with sitting or laying down does not awaken her from sleep at night. Patient reports no new motor or sensory deficits no new bowel or bladder incontinence or other complaints. Physical Exam: VS: Pressure is 144/68 pulse 64 respirations 18 temperature is 98.5 F height is 5 feet 9 inches weight is 171 pounds PE: PHYSICAL EXAMINATION: GENERAL: The patient is awake, alert, oriented, appropriate, very pleasant demeanor HEENT: Shows normocephalic, atraumatic. Extraocular movements are intact and symmetrical. Oral cavity: Mucous membranes moist and pink. NECK: Shows anterior throat supple without palpable lymphadenopathy noted. Swallow reflex symmetrical. CHEST: Shows normal on inspection. Breath sounds are clear bilaterally, no rales rhonchi or wheezes auscultated. HEART: Shows S1, S2 clear. No murmurs auscultated. ABDOMEN: Soft, nontender, nondistended. No palpable organomegaly is noted. No rebound or guarding demonstrated. BACK: Shows spine grossly in the midline. Normal-appearing cervical lordotic curvature. There is slightly increased thoracic kyphosis, some minor flattening of the lumbar lordotic curvature. Lumbar paraspinous muscles show symmetrical on inspection, on palpation shows some moderate tenderness diffusely throughout the upper, middle and lower distribution of the paraspinous muscles bilaterally, but without specific trigger points, without radiation of pain. The patient has good rotational motion of the lumbar spine, both laterally as well as extension and flexion without significant difficulty. No tenderness over the spinous processes, sacrum or sacroiliac regions. EXTREMITIES: Lower extremities show deep tendon reflexes 2+ in the patellar and tendo calcaneus tendons. Motor exam is 5 on a scale of 5 with right dorsiflexion, extension, quadriceps and hamstring flexion and 5/5 on the left. Peripheral pulses are 1+ posterior tibial. No peripheral edema is noted bilaterally. Lower extremities are warm and dry to touch, equal in color and appearance. SKIN: Shows warm and dry, good turgor. No edema. No sores, rashes or bruising throughout. Procedure: Procedure: Options were discussed with the patient. Patient's old chart was reviewed his current medication regimen updated current review of systems updated today as well we will proceed with a third in the series lumbar epidural steroid injection today with fluoroscopic guidance. Risks again discussed including but not limited to bleeding infection possibility of epidural hematoma subsequent neurological compromise dural puncture headache spinal cord and or nerve damage side effects of steroid medication and poor results regarding pain control. Patient understands wished to proceed patient return to clinic in approximate 2 weeks for follow-up was counseled as to return appointment activity level and side effects to be aware. Medication Injected: Med Injected: Procedure is lumbar epidural steroid injection under local anesthetic using sterile prep and drape at the L4-5 level using C-arm fluoroscopic guidance in both AP and lateral views medications injected is 120 mg Depo-Medrol + 10 mL preservative-free normal saline and 2 mL contrast- condition at discharge is stable patient tolerated procedure well had no complications. Condition at Discharge: Condition at Discharge: Condition at discharge is stable patient tolerated procedure well had no complications. JAROD FABIAN MD Jun 01, 2020 11:25
== END | disposition home or self-care (01) ==
LOC: PNCL 09:57
PROVIDERS: ATTEND Anesthesiology
DX: M51.16 Intervertebral disc disorders with radiculopathy, lumbar region (principal); M50.10 Cervical disc disorder with radiculopathy, unspecified cervical region; Z88.8 Allergy status to other drugs, medicaments and biological substances; Z79.899 Other long term (current) drug therapy
CPT/HCPCS: 62323; J1030; J1040; Q9965

== ENCOUNTER → 2020-11-07 | Outpatient (CLI) | payer MEDICARE, OTHER ==
[2018-03-12 15:44] VITALS: BP 119/80
--- NOTE | 2020-11-07 11:00 | PDOC ---
Progress Note - Pain Clinic Date of Service: DOS: DATE: 11/07/20 TIME: 10:58 Diagnosis: Dx: Lumbar radiculopathy with lumbar degenerative disc disease Cervical radiculopathy with cervical degenerative disc disease Left shoulder joint pain History or Present Illness: HPI: 75-year-old male returns for follow-up last seen June 01, 2020 patient underwent lumbar epidural steroid injection x3 with excellent results about 90% improvement for about 4 months. Patient reports pain returning now in the low back and right lower extremities going all the way to the posterior gluteus lateral thigh anterior thigh medial thigh medial lower leg into the calf and into the foot at times patient reports it is a 9 on scale 10 is worse over the past week 8 on average 6 its least is a 7 today patient reports shooting and severe down the right leg and across the low back mostly on the right side however patient reports is worse with walking standing changing positions better with sitting down or laying down generally is not awakening from sleep at night. Initially patient was doing much better with distance walking doing household activities travel with greater ease and comfort as well. Patient reports no new motor or sensory deficits no new bowel or bladder incontinence or other complaints. Physical Exam: VS: Blood pressure is 125/95 pulse 75 respirations 16 temperature is 98.0 F height is 5 feet 9 inches weight is 180 pounds PE: PHYSICAL EXAMINATION: GENERAL: The patient is awake, alert, oriented, appropriate, very pleasant demeanor HEENT: Shows normocephalic, atraumatic. Extraocular movements are intact and symmetrical. Oral cavity: Mucous membranes moist and pink. NECK: Shows anterior throat supple without palpable lymphadenopathy noted. Swallow reflex symmetrical. CHEST: Shows normal on inspection. Breath sounds are clear bilaterally. HEART: Shows S1, S2 clear. No murmurs auscultated. ABDOMEN: Soft, nontender, nondistended, obese. No palpable organomegaly is noted. No rebound or guarding demonstrated. BACK: Shows spine grossly in the midline. Normal-appearing cervical lordotic curvature. There is slightly increased thoracic kyphosis, some minor flattening of the lumbar lordotic curvature. Lumbar paraspinous muscles show symmetrical on inspection, on palpation shows some moderate tenderness diffusely throughout the upper, middle and lower distribution of the paraspinous muscles, but without specific trigger points, without radiation of pain. The patient has good rotational motion of the lumbar spine, both laterally as well as extension and flexion without significant difficulty. EXTREMITIES: Lower extremities show deep tendon reflexes 2+ in the patellar and tendo calcaneus tendons. Motor exam is 5 on a scale of 5 with right dorsiflexion, extension, quadriceps and hamstring flexion and 5/5 on the left. Peripheral pulses are 1+ posterior tibial. No peripheral edema is noted bilaterally. Lower extremities are warm and dry to touch, equal in color and appearance. SKIN: Shows warm and dry, good turgor. No edema. No sores, rashes or bruising throughout. Procedure: Procedure: Options were discussed with the patient. Patient's old chart reviewed his current medication regimen updated current review of systems updated today as well. We will proceed with a lumbar epidural steroid injection today with fluoroscopic guidance. Risks were discussed including but not limited to: Bleeding, infection, possibility of epidural hematoma and subsequent neur ological compromise, dural puncture, headaches, spinal cord and/or nerve damage, side effects of steroid medication, and poor results regarding pain control. Patient understands and wished to proceed. Patient will return to clinic in approximate 2 weeks for follow-up, was counseled as return appointment activity level, and side effects to be aware of. Medication Injected: Med Injected: Procedure is lumbar epidural steroid injection under local anesthetic using sterile prep and drape at the L4-5 level using C-arm fluoroscopic guidance in both AP and lateral views medications injected is 120 mg Depo-Medrol + 10 mL preservative-free normal saline and 2 mL contrast- condition at discharge is stable patient tolerated procedure well had no complications. Condition at Discharge: Condition at Discharge: Condition at discharge stable, patient tolerated procedure well had no complications. JAROD FABIAN MD Nov 07, 2020 11:00
--- NOTE | 2020-11-07 11:01 | PDOC4 ---
PROCEDURE Procedure Patient was consented for lumbar epidural steroid injection. Risks were dis cussed including but not limited to: Bleeding, infection, possibility of epidural hematoma and subsequent neurological compromise, dural puncture, headaches, spinal cord and/or nerve damage, side effects of steroid medication, and poor results regarding pain control. Patient understands and wished to proceed. Procedure is lumbar epidural steroid injection under local anesthetic using sterile prep and drape at the L4-5 level using C-arm fluoroscopic guidance in both AP and lateral views medications injected is 120 mg Depo-Medrol + 10 mL preservative-free normal saline and 2 mL contrast- condition at discharge is stable patient tolerated procedure well had no complications. JAROD FABIAN MD Nov 07, 2020 11:01
== END | disposition home or self-care (01) ==
LOC: PNCL 09:58
PROVIDERS: ATTEND Anesthesiology
DX: M51.16 Intervertebral disc disorders with radiculopathy, lumbar region (principal); M50.123 Cervical disc disorder at C6-C7 level with radiculopathy; M25.512 Pain in left shoulder; Z98.890 Other specified postprocedural states; Z88.1 Allergy status to other antibiotic agents
CPT/HCPCS: 62323; J1030; J1040; Q9965

== ENCOUNTER → 2020-11-21 | Outpatient (CLI) | payer MEDICARE, OTHER ==
[2018-03-12 15:44] VITALS: BP 119/80
--- NOTE | 2020-11-21 11:05 | PDOC ---
Progress Note - Pain Clinic Date of Service: DOS: DATE: 11/21/20 TIME: 11:02 Diagnosis: Dx: Lumbar radiculopathy with lumbar degenerative disc disease Cervical radiculopathy with cervical degenerative disease Left shoulder joint pain with torn rotator cuff History or Present Illness: HPI: 75-year-old male returns for follow-up status post lumbar epidural steroid injection x1. Patient was about 75% improvement in low back and right lower extremity pain with some pain still in the right posterior hip otherwise doing much better patient reports pain is a 7 on scale 10 is worse over the past week 5 on average 3 days least and is a 3 today patient ported tight and aching with the radiating pain in the lower extremities significantly decreased patient reports is better with sitting or laying down reports he has been sleeping well does not awaken him from sleep to increase his distance walking doing household activities greater ease and comfort and travel with greater ease as well. Patient reports no new motor or sensory deficits no new bowel or bladder or other complaints. Physical Exam: VS: Blood pressure is 156/102 pulse 68 respirations 16 temperature is 90.4 F height is 5 foot 9 inches weight is 178 pounds PE: PHYSICAL EXAMINATION: GENERAL: The patient is awake, alert, oriented, appropriate, very pleasant demeanor HEENT: Shows normocephalic, atraumatic. Extraocular movements are intact and symmetrical. Oral cavity: Mucous membranes moist and pink. NECK: Shows anterior throat supple without palpable lymphadenopathy noted. Swallow reflex symmetrical. CHEST: Shows normal on inspection. Breath sounds are clear bilaterally, no rales or rhonchi. HEART: Shows S1, S2 clear. No murmurs auscultated. ABDOMEN: Soft, nontender, nondistended, obese. No palpable organomegaly is noted. No rebound or guarding demonstrated. BACK: Shows spine grossly in the midline. Normal-appearing cervical lordotic curvature. There is slightly increased thoracic kyphosis, some minor flattening of the lumbar lordotic curvature. Lumbar paraspinous muscles show symmetrical on inspection, on palpation shows some moderate tenderness diffusely throughout the upper, middle and lower distribution of the paraspinous muscles bilaterally, but without specific trigger points, without radiation of pain. The patient has good rotational motion of the lumbar spine, both laterally as well as extension and flexion without significant difficulty. EXTREMITIES: Lower extremities show deep tendon reflexes 2+ in the patellar and tendo calcaneus tendons. Motor exam is 5 on a scale of 5 with right dorsiflexion, extension, quadriceps and hamstring flexion and 5/5 on the left. Peripheral pulses are 1+ posterior tibial. No peripheral edema is noted bilaterally. Lower extremities are warm and dry to touch, equal in color and appearance. SKIN: Shows warm and dry, good turgor. No edema. Procedure: Procedure: Options were discussed with the patient. Patient chart reviews his current medi cation regimen updated current review of systems updated today as well. We will proceed with a second in a series lumbar epidural steroid traction today with fluoroscopic guidance. Risks were discussed including but not limited to: Bleeding, infection, possibility of epidural hematoma and subsequent neurological compromise, dural puncture, headaches, spinal cord and/or nerve damage, side effects of steroid medication, and poor results regarding pain control. Patient understands and wished to proceed. Patient return to clinic in approximate 2 weeks for follow-up with counselors return appointment activity level and side effects to be aware of. Medication Injected: Med Injected: Procedure is lumbar epidural steroid injection under local anesthetic using sterile prep and drape at the L4-5 level using C-arm fluoroscopic guidance in both AP and lateral views medications injected is 120 mg Depo-Medrol + 10 mL preservative-free normal saline and 2 mL contrast- condition at discharge is stable patient tolerated procedure well had no complications. Condition at Discharge: Condition at Discharge: Condition at discharge stable, patient tolerated the procedure well and had no complications. JAROD FABIAN MD Nov 21, 2020 11:05
--- NOTE | 2020-11-21 11:06 | PDOC4 ---
PROCEDURE Procedure Patient was consented for lumbar epidural steroid injection. Risks were dis cussed including but not limited to: Bleeding, infection, possibility of epidural hematoma and subsequent neurological compromise, dural puncture, headaches, spinal cord and/or nerve damage, side effects of steroid medication, and poor results regarding pain control. Patient understands and wished to proceed. Procedure is lumbar epidural steroid injection under local anesthetic using sterile prep and drape at the L4-5 level using C-arm fluoroscopic guidance in both AP and lateral views medications injected is 120 mg Depo-Medrol + 10 mL preservative-free normal saline and 2 mL contrast- condition at discharge is stable patient tolerated procedure well had no complications. JAROD FABIAN MD Nov 21, 2020 11:06
== END | disposition home or self-care (01) ==
LOC: PNCL 09:54
PROVIDERS: ATTEND Anesthesiology
DX: M51.16 Intervertebral disc disorders with radiculopathy, lumbar region (principal); M50.10 Cervical disc disorder with radiculopathy, unspecified cervical region; M25.512 Pain in left shoulder; M75.102 Unspecified rotator cuff tear or rupture of left shoulder, not specified as traumatic; I10 Essential (primary) hypertension; K21.9 Gastro-esophageal reflux disease without esophagitis; J44.9 Chronic obstructive pulmonary disease, unspecified; M19.90 Unspecified osteoarthritis, unspecified site; Z90.49 Acquired absence of other specified parts of digestive tract; Z98.890 Other specified postprocedural states; Z79.899 Other long term (current) drug therapy; Z87.891 Personal history of nicotine dependence; Z88.1 Allergy status to other antibiotic agents
CPT/HCPCS: 62323; J1030; J1040; Q9965

== ENCOUNTER → 2020-12-05 | Outpatient (CLI) | payer MEDICARE, OTHER ==
[2018-03-12 15:44] VITALS: BP 119/80
[~2020-12-05] MED LIST changes: -CHLO1CAP50 PO; +CHLO1CAP56 PO
--- NOTE | 2020-12-05 10:19 | PDOC ---
Progress Note - Pain Clinic Date of Service: DOS: DATE: 12/05/20 TIME: 10:14 Diagnosis: Dx: Cervical radiculopathy with cervical degenerative disease Lumbar radiculopathy with lumbar degenerative disc disease Left shoulder joint pain with torn rotator cuff History or Present Illness: HPI: 75-year-old male returns follow-up status post lumbar epidural steroid injection x2. Patient reports about 50 to 60% improvement and has been increasing his activity with greater ease and comfort with the low back is very pleased with his progress. Patient's chief complaint is pain the base the neck and the upper extremities more on the left than the right but present bilaterally with radiating pain in the shoulders and the posterior triceps, posterior forearms as well as the biceps on the left and the anterior forearms bilaterally patient reports the pain is sharp in the neck and aching in the neck as well as rad iating and shooting in the upper extremities without any significant loss of motor function but worse with repetitive motions reaching over his head weight lifting and driving. Patient reports he is sleeping well at night does not awaken from sleep he has been increasing his activity with walking and doing household activities with his low back feeling much better. Patient rates his pain as a 5 on a scale 10 is worse over the past week 5 on average to its least is a 5 today. Patient reports no new motor or sensory deficits no new bowel or bladder incontinence or other complaints. Physical Exam: VS: Pressure is 156/105 pulse 67 respirations are 18 temperature is 98.2 F height is 5 feet 9 inches weight is 177 pounds PE: PHYSICAL EXAMINATION: GENERAL: The patient is awake, alert, oriented, appropriate, very pleasant demeanor HEENT: Shows normocephalic, atraumatic. Extraocular movements are intact and symmetrical. Oral cavity: Mucous membranes moist and pink. Dentition is intact. NECK: Shows anterior throat supple without palpable lymphadenopathy noted. Swallow reflex symmetrical. CHEST: Shows normal on inspection. Breath sounds are clear bilaterally, no rales or rhonchi. HEART: Shows S1, S2 clear. No murmurs auscultated. ABDOMEN: Soft, nontender, nondistended, obese. No palpable organomegaly is noted. No rebound or guarding demonstrated. BACK: Shows spine grossly in the midline. Normal-appearing cervical lordotic curvature. Cervical paraspinous muscles show symmetrical on inspection, with palpation shows some moderate tenderness inferiorly in this superior medial trapezius as well as the inferior cervical paraspinous musculature without radiation without trigger points. Patient does show good rotation of motion of the cervical spine both laterally past 45 degrees as well as full extension, and full forward flexion without significant increase in pain. There is slightly increased thoracic kyphosis, some minor flattening of the lumbar lordotic cu rvature. Lumbar paraspinous muscles show symmetrical on inspection, on palpation shows some moderate tenderness diffusely throughout the upper, middle and lower distribution of the paraspinous muscles bilaterally and also into the lower thoracic paraspinous musculature, firm and tender, but without specific trigger points, without radiation of pain. The patient has good rotational motion of the lumbar spine, both laterally as well as extension and flexion without significant difficulty. No tenderness over the spinous processes, sacrum or sacroiliac regions. EXTREMITIES: Lower extremities show deep tendon reflexes 2+ in the patellar and tendo calcaneus tendons. Motor exam is 5 on a scale of 5 with right dorsiflexion, extension, quadriceps and hamstring flexion and 5/5 on the left. Peripheral pulses are 1+ posterior tibial. No peripheral edema is noted bilaterally. Lower extremities are warm and dry to touch, equal in color and appearance. Upper extremities show deep tendon reflexes 2+ in the bicep tricep tendons, motor exam is strong with cartridge assembler strength rated 5 out of 5 as is bicep and tricep flexion. Peripheral pulses are 2+ radial, no peripheral edema is noted bilaterally. SKIN: Shows warm and dry, good turgor. No edema. No sores, rashes or bruising throughout. Procedure: Procedure: Options were discussed with the patient. Patients old chart was reviewed, as was his current medication regimen updated ,current review of systems updated today as well. We will proceed with a cervical epidural steroid injection today with fluoroscopic guidance. Risks were discussed including but not limited to: Bleeding, infection, possibility of epidural hematoma and subsequent neurological compromise, dural puncture, headaches, spinal cord and/or nerve damage, side effects of steroid medication, and poor results regarding pain control. Patient understands and wished to proceed. Patient return to clinic in approximate 2 weeks for follow-up, was counseled as return appointment activity level and side effects to be aware of. Medication Injected: Med Injected: Procedure cervical epidural steroid injection at the C6-7 level, using local anesthetic under sterile prep and drape using C-arm fluoroscopic guidance under local anesthesia medications injected ; 120 mg Depo-Medrol + 5 mL normal saline and 2 mL contrast; condition at discharge is stable patient tolerated procedure well. and had no complications Condition at Discharge: Condition at Discharge: Condition at discharge stable, patient tolerated the procedure well and had no complications. JAROD FABIAN MD Dec 05, 2020 10:19
--- NOTE | 2020-12-05 10:19 | PDOC4 ---
PROCEDURE Procedure Patient was consented for cervical epidural steroid injection. Risks were d iscussed including but not limited to: Bleeding, infection, possibility of epidural hematoma and subsequent neurological compromise, dural puncture, headaches, spinal cord and/or nerve damage, side effects of steroid medication, and poor results regarding pain control. Patient understands and wished to proceed. Procedure cervical epidural steroid injection at the C6-7 level, using local anesthetic under sterile prep and drape using C-arm fluoroscopic guidance under local anesthesia medications injected ; 120 mg Depo-Medrol + 5 mL normal saline and 2 mL contrast; condition at discharge is stable patient tolerated procedure well. and had no complications JAROD FABIAN MD Dec 05, 2020 10:19
== END | disposition home or self-care (01) ==
LOC: PNCL 09:16
PROVIDERS: ATTEND Anesthesiology
DX: M50.10 Cervical disc disorder with radiculopathy, unspecified cervical region (principal); M51.16 Intervertebral disc disorders with radiculopathy, lumbar region; M75.102 Unspecified rotator cuff tear or rupture of left shoulder, not specified as traumatic; I10 Essential (primary) hypertension; J44.9 Chronic obstructive pulmonary disease, unspecified; K21.9 Gastro-esophageal reflux disease without esophagitis; M19.90 Unspecified osteoarthritis, unspecified site; Z90.49 Acquired absence of other specified parts of digestive tract; Z98.890 Other specified postprocedural states; Z79.899 Other long term (current) drug therapy; Z88.1 Allergy status to other antibiotic agents; Z87.891 Personal history of nicotine dependence
CPT/HCPCS: 62321; J1030; J1040; Q9965

== ENCOUNTER → 2020-12-26 | Outpatient (CLI) | payer MEDICARE, OTHER ==
[2018-03-12 15:44] VITALS: BP 119/80
[~2020-12-26] MED LIST changes: +BUPIVACAINE MPF 0.25% 10 ML VIAL. ONE; -methylPREDNISolone ACETATE 40 MG/ML VIAL. ONE
--- NOTE | 2020-12-26 10:02 | PDOC ---
Progress Note - Pain Clinic Date of Service: DOS: DATE: 12/26/20 TIME: 09:53 Diagnosis: Dx: Cervical radiculopathy with cervical degenerative disc disease Lumbar radiculopathy with lumbar degenerative disc disease Left shoulder joint pain with osteoarthritis and rotator cuff tear History or Present Illness: HPI: 75-year-old male returns follow-up status post lumbar epidural steroid injection x2 and cervical epidural to injection x1. Patient reports about 75% improvement with the back and leg pain his neck is still significantly painful and has significant pain in the left shoulder worse with rotation motion reaching weightbearing as well as repetitive motion and driving. Patient reports that shoulders his chief complaint with pain radiating into the anterior bicep and into the posterior triceps at times again worse with weightbearing or lifting patient reports that sharp and stabbing at times can be dull aching as well generally is not awakening from sleep at night patient reports the pain in his shoulders 8 on scale 10 is worse over the past week for an average to its least is a 4 today. Patient reports no new motor or sensory deficits no new bowel or bladder incontinence or other complaints. Physical Exam: VS: Blood pressure is 125/80 pulse 78 respirations 16 temperature 98.4 F height is 5 9 inches weight is 177 pounds PE: PHYSICAL EXAMINATION: GENERAL: The patient is awake, alert, oriented, appropriate, very pleasant demeanor HEENT: Shows normocephalic, atraumatic. Extraocular movements are intact and symmetrical. Oral cavity: Mucous membranes moist and pink. NECK: Shows anterior throat supple without palpable lymphadenopathy noted. Swallow reflex symmetrical. CHEST: Shows normal on inspection. Breath sounds are clear bilaterally. HEART: Shows S1, S2 clear. No murmurs auscultated. ABDOMEN: Soft, nontender, nondistended, obese. No palpable organomegaly is noted. No rebound or guarding demonstrated. BACK: Shows spine grossly in the midline. Normal-appearing cervical lordotic curvature. There is slightly increased thoracic kyphosis, some minor flattening of the lumbar lordotic curvature. Lumbar paraspinous muscles show symmetrical on inspection, on palpation shows some moderate tenderness diffusely throughout the upper, middle and lower distribution of the paraspinous muscles without specific trigger points, without radiation of pain. The patient has good rotational motion of the lumbar spine, both laterally as well as extension and flexion without significant difficulty. EXTREMITIES: Lower extremities show deep tendon reflexes 2+ in the patellar and tendo calcaneus tendons. Motor exam is 5 on a scale of 5 with right dorsiflexion, extension, quadriceps and hamstring flexion and 5/5 on the left. Peripheral pulses are 1+ posterior tibial. No peripheral edema is noted bilaterally. Lower extremities are warm and dry to touch, equal in color and appearance. 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 With abduction of the shoulder on the left side with resistance shows significant tenderness in the anterior aspect of the left shoulder with radiating pain into the bicep as well as the lateral deltoid. Shoulder shrug is strong and intact without loss of strength on resistance bilaterally but with some moderate tenderness with the left shoulder noted. With palpation patient shows significant tenderness over the anterior aspect of the biceps tendon region as well as the superior aspect of the glenohumeral joint especially with passive motion posteriorly and with abduction. Right side is nontender. SKIN: Shows warm and dry, good turgor. No edema. No sores, rashes or bruising throughout. Procedure: Procedure: Options were discussed with the patient. Patient chart reviews his current med ication regimen updated current review of systems updated today as well. We will proceed with a left intra-articular glenohumeral shoulder joint injection today with fluoroscopic guidance. Risk were discussed including but not limited to bleeding infection possibility of intravascular injection sequelae spread local anesthetic numbness side effects steroid medication and poor results regarding pain control. Patient understands wished to proceed patient return to the clinic in approximately 2 weeks for follow-up, was counseled as to return appointment activity level, and side effects to be aware of. Medication Injected: Med Injected: Under sterile prep and drape patient supine position using C-arm fluoroscopic guidance patient's left shoulder was visualized and using 1% lidocaine to anesthetize the area over the glenohumeral joint then 22-gauge Quincke needle with stylette was advanced under direct fluoroscopic vision into the glenohumeral joint on the left. Stylet was removed negative aspiration was identified at this time 1.5 cc of contrast was injected with good spread within the shoulder without uptake or extravasation. At this time solution containing 3 cc 0.25% bupivacaine and 80 mg Depo-Medrol was then injected needle was then removed sterile bandage was applied. Patient tolerated the procedure well and had no complications. Condition at Discharge: Condition at Discharge: Condition at discharge stable, patient already procedure well had no complications. JAROD FABIAN MD Dec 26, 2020 10:02
--- NOTE | 2020-12-26 10:03 | PDOC4 ---
PROCEDURE Procedure Patient was consented for left intra-articular glenohumeral shoulder joint i njection with fluoroscopic guidance. Risks were discussed including but not limited to bleeding infection possibility of intravascular injection sequelae spread of local anesthetic numbness side effects steroid medication and portal scarring pain control. Patient understands wished to proceed. Under sterile prep and drape patient supine position using C-arm fluoroscopic guidance patient's left shoulder was visualized and using 1% lidocaine to anesthetize the area over the glenohumeral joint then 22-gauge Quincke needle with stylette was advanced under direct fluoroscopic vision into the glenohumeral joint on the left. Stylet was removed negative aspiration was identified at this time 1.5 cc of contrast was injected with good spread within the shoulder without uptake or extravasation. At this time solution containing 3 cc 0.25% bupivacaine and 80 mg Depo-Medrol was then injected needle was then removed sterile bandage was applied. Patient tolerated the procedure well and had no complications. JAROD FABIAN MD Dec 26, 2020 10:03
== END | disposition home or self-care (01) ==
LOC: PNCL 09:13
PROVIDERS: ATTEND Anesthesiology
DX: M19.012 Primary osteoarthritis, left shoulder (principal); M75.102 Unspecified rotator cuff tear or rupture of left shoulder, not specified as traumatic; M50.10 Cervical disc disorder with radiculopathy, unspecified cervical region; M51.16 Intervertebral disc disorders with radiculopathy, lumbar region; I10 Essential (primary) hypertension; J44.9 Chronic obstructive pulmonary disease, unspecified; K21.9 Gastro-esophageal reflux disease without esophagitis; Z90.49 Acquired absence of other specified parts of digestive tract; Z98.890 Other specified postprocedural states; Z79.899 Other long term (current) drug therapy; Z88.1 Allergy status to other antibiotic agents
CPT/HCPCS: 20610; 77002; J1040; J3490; Q9965

== ENCOUNTER → 2021-06-08 | Outpatient (CLI) | payer MEDICARE, OTHER ==
[2018-03-12 15:44] VITALS: BP 119/80
[~2021-06-08] MED LIST changes: +ACYC-12 PO; -ACYC400T PO; -BUPIVACAINE MPF 0.25% 10 ML VIAL. ONE; -OMEP40CA45 PO; +OMEP40CA7 PO
--- NOTE | 2021-06-08 11:48 | PDOC ---
Progress Note - Pain Clinic Date of Service: DOS: DATE: 06/08/21 TIME: 11:45 Diagnosis: Dx: Lumbar radiculopathy with lumbar degenerative disc disease Cervical radiculopathy with cervical degenerative disease Left shoulder joint pain with osteoarthritis and rotator cuff tear History or Present Illness: HPI: 75-year-old male returns for follow-up status post left shoulder joint injection with approximately 75% improvement with the pain in the left shoulder patient also had cervical epidural prior to that patient reports that his main complaint now is low back pain and slightly more to the right and left lower extremity with pain across the low back worse with walking standing changing positions better with sitting or laying down patient reports initially he is doing much better after shoulder injection with distance walking doing household activities try with greater ease comfort sleeping better at night also recently diagnosed with sleep apnea and has a new CPAP machine which he is trying and so far feels like it is helping patient reports his main complaint again is low back pain radiating to lower extremities slightly more on the right than the left into the posterior gluteus lateral thigh and anterior thigh is a stabbing pain dull and aching in the back and shooting in the right leg patient reports is a 6 on scale 10 is worst average and least as a 6 on a scale of 10 today. Patient reports no loss of motor function no bowel incontinence. Physical Exam: VS: Blood pressure is 133/91 pulse 65 respirations 18 temperature 98.3 F height is 5 foot 9 inches weight is 170 pounds PE: PHYSICAL EXAMINATION: GENERAL: The patient is awake, alert, oriented, appropriate, very pleasant in demeanor HEENT: Shows normocephalic, atraumatic. Extraocular movements are intact and symmetrical. Oral cavity: Mucous membranes moist and pink NECK: Shows anterior throat supple without palpable lymphadenopathy noted. Swallow reflex symmetrical. CHEST: Shows normal on inspection. Breath sounds are clear bilaterally, no rales or rhonchi. HEART: Shows S1, S2 clear. No murmurs auscultated. ABDOMEN: Soft, nontender, nondistended, obese. No palpable organomegaly is noted. BACK: Shows spine grossly in the midline. Normal-appearing cervical lordotic c urvature. Cervical paraspinous muscles show symmetrical inspection with some moderate tenderness on the right side only in the middle and inferior aspect of the cervical paraspinous muscles but without trigger points or radiation. Patient has full rotation motion cervical spine both laterally as well as extension flexion without difficulty. There is slightly increased thoracic k yphosis, some minor flattening of the lumbar lordotic curvature. Lumbar paraspinous muscles show symmetrical on inspection, on palpation shows some moderate tenderness diffusely throughout the upper, middle and lower distribution of the paraspinous muscles, but without specific trigger points, without radiation of pain. The patient has good rotational motion of the lumbar spine, both laterally as well as extension and flexion without significant difficulty. EXTREMITIES: Lower extremities show deep tendon reflexes 2+ in the patellar and tendo calcaneus tendons. Motor exam is 5 on a scale of 5 with right dorsiflexion, extension, quadriceps and hamstring flexion and 5/5 on the left. Peripheral pulses are 1 posterior tibial. No peripheral edema is noted bi laterally. Lower extremities are warm and dry to touch, equal in color and appearance. SKIN: Shows warm and dry, good turgor. No edema. No sores, rashes or bruising throughout. Procedure: Procedure: Options discussed with patient. Patient chart reviews her current medication regimen updated current review of systems updated today as well. We will proceed with a lumbar epidural steroid injection stable fluoroscopic guidance. Risks were discussed including but not limited to: Bleeding, infection, possibility of epidural hematoma and subsequent neurological compromise, dural puncture, headaches, spinal cord and/or nerve damage, side effects of steroid medication, and poor results regarding pain control. Patient understands and wished to proceed. Patient will return to clinic in approximately 2 weeks for follow-up, was counseled as to return appointment activity level and side effects to be aware of. Medication Injected: Med Injected: Procedure is lumbar epidural steroid injection under local anesthetic using sterile prep and drape at the L4-5 level using C-arm fluoroscopic guidance in both AP and lateral views medications injected is 120 mg Depo-Medrol +10mL preservative-free normal saline and 2 mL contrast- condition at discharge is stable patient tolerated procedure well had no complications. Condition at Discharge: Condition at Discharge: Condition at discharge is stable, patient tolerated the procedure well and had no complications. JAROD FABIAN MD Jun 08, 2021 11:48
--- NOTE | 2021-06-08 11:49 | PDOC4 ---
Procedure Note: ICD 10 Code: ICD 10 Code: M54.16 M51.36 Procedure Note: Patient was consented for lumbar epidural steroid injection with fluoroscopic guidance. Risks were discussed including but not limited to: Bleeding, infection, possibility of epidural hematoma and subsequent neurological compromise, dural puncture, headaches, spinal cord and/or nerve damage, side effects of steroid medication, and poor results regarding pain control. Patient understands and wished to proceed. Procedure is lumbar epidural steroid injection under local anesthetic using sterile prep and drape at the L4-5 level using C-arm fluoroscopic guidance in both AP and lateral views medications injected is 120 mg Depo-Medrol +10mL preservative-free normal saline and 2 mL contrast- condition at discharge is stable patient tolerated procedure well had no complications. JAROD FABIAN MD Jun 08, 2021 11:49
== END | disposition home or self-care (01) ==
LOC: PNCL 10:57
PROVIDERS: ATTEND Anesthesiology
DX: M51.16 Intervertebral disc disorders with radiculopathy, lumbar region (principal); M50.10 Cervical disc disorder with radiculopathy, unspecified cervical region; M19.012 Primary osteoarthritis, left shoulder; M75.102 Unspecified rotator cuff tear or rupture of left shoulder, not specified as traumatic; I10 Essential (primary) hypertension; J44.9 Chronic obstructive pulmonary disease, unspecified; K21.9 Gastro-esophageal reflux disease without esophagitis; Z79.899 Other long term (current) drug therapy; Z98.890 Other specified postprocedural states; Z88.1 Allergy status to other antibiotic agents
CPT/HCPCS: 62323; J1040; Q9965; 62322

== ENCOUNTER → 2021-06-26 | Outpatient (CLI) | payer MEDICARE, OTHER ==
[2018-03-12 15:44] VITALS: BP 119/80
[~2021-06-26] MED LIST changes: -IOHEXOL 180 MG/ML 10 ML VIAL. ONE; -methylPREDNISolone ACETATE 80 MG/ML VIAL. ONE
--- NOTE | 2021-06-26 14:00 | KCIC ---
XR RIBS 2 VIEWS LT History: Left mid to lower rib pain after fall. Comparison: None. Technique: PA and lateral chest radiographs. Findings: Partially visualized right chest catheter tip projects at the cavoatrial junction. Mild blunting of l eft costophrenic angle may represent atelectasis and/or small pleural fluid collection. No pneumothor ax. Degenerative changes of left shoulder with high riding humeral head. Mildly displaced left seventh, eighth and ninth lateral rib fractures. Impression: 1. Mildly displaced left seventh, eighth and ninth lateral rib fractures. Blunting of left costophre erin angle may represent atelectasis and/or small pleural fluid collection. No pneumothorax. 2. Evidence of left rotator cuff tear. Electronically signed by: Sam Hurst MD (06/26/2021 11:23 AM) [id number]
== END ==
LOC: KCIC 11:00
PROVIDERS: ATTEND Family Medicine
DX: S22.42XA Multiple fractures of ribs, left side, initial encounter for closed fracture (principal); M19.012 Primary osteoarthritis, left shoulder; M75.102 Unspecified rotator cuff tear or rupture of left shoulder, not specified as traumatic; W19.XXXA Unspecified fall, initial encounter; Y93.89 Activity, other specified; Y92.89 Other specified places as the place of occurrence of the external cause; Y99.8 Other external cause status
CPT/HCPCS: 71100

== ENCOUNTER → 2021-07-26 | Outpatient (CLI) | payer MEDICARE, OTHER ==
[2018-03-12 15:44] VITALS: BP 119/80
[~2021-07-26] MED LIST changes: +IOHEXOL 180 MG/ML 10 ML VIAL. ONE; +methylPREDNISolone ACETATE 40 MG/ML VIAL. ONE; +methylPREDNISolone ACETATE 80 MG/ML VIAL. ONE
--- NOTE | 2021-07-26 11:35 | PDOC ---
Progress Note - Pain Clinic Date of Service: DOS: DATE: 07/26/21 TIME: 11:32 Diagnosis: Dx: Lumbar radiculopathy with lumbar degenerative disease Cervical radiculopathy with cervical degenerative disc disease Left shoulder joint pain with osteoarthritis and rotator cuff tear History or Present Illness: HPI: 75-year-old male returns for follow-up status post lumbar epidural steroid injection x1. Patient with 80% improvement for several weeks following the injection approximately 5 weeks or so the pain began to return in the low back and into the bilateral lower extremities slightly more on the left than the right but present bilaterally posterior gluteus posterior lateral thigh lateral anterior thigh anteromedial thigh medial lower leg occasionally but mostly across the low back this may complaint patient reports better with sitting or laying down generally is not awakening from sleep at night patient reports the pain is a 9 on scale 10 is worse over the past week 6 on average 3 its least and is a 3 today patient describes it as severe at times with walking standing changing positions better with sitting or laying down tingling burning cramping stabbing shooting pain in the lower extremities again worse on the left than the right. Patient reports no bowel or bladder incontinence no motor deficits but significant fatigue in the left leg with extended standing or walking. Physical Exam: VS: Blood pressure is 142/98 pulse 72 respirations 18 temperature is 90.1 F height 5 feet 9 inches weight is 171 pounds PE: PHYSICAL EXAMINATION: GENERAL: The patient is awake, alert, oriented, appropriate, very pleasant in demeanor HEENT: Shows normocephalic, atraumatic. Extraocular movements are intact and symmetrical. NECK: Shows anterior throat supple without palpable lymphadenopathy noted. Swallow reflex symmetrical. CHEST: Shows normal on inspection. Breath sounds are clear bilaterally, distant but no rales or rhonchi. HEART: Shows S1, S2 clear. No murmurs auscultated. ABDOMEN: Soft, nontender, nondistended, obese. No palpable organomegaly is noted. BACK: Shows spine grossly in the midline. Normal-appearing cervical lordotic curvature. Cervical paraspinous muscles show symmetrical inspection, on palpation some mild tenderness the inferior aspect cervical paraspinous muscular bilaterally but full rotation motion cervical spine both laterally as well as extension flexion without significant difficulty. There is slightly increased thoracic kyphosis, some minor flattening of the lumbar lordotic curvature. Lumbar paraspinous muscles show symmetrical on inspection, on palpation shows some moderate tenderness diffusely throughout the upper, middle and lower distribution of the paraspinous muscles without specific trigger points, without radiation of pain. The patient has good rotational motion of the lumbar spine, both laterally as well as extension and flexion without significant difficulty. No tenderness over the spinous processes, sacrum or sacroiliac regions. EXTREMITIES: Lower extremities show deep tendon reflexes 2+ in the patellar and tendo calcaneus tendons. Motor exam is 5 on a scale of 5 with right dorsiflexion, extension, quadriceps and hamstring flexion and 5/5 on the left. Peripheral pulses are 1+ posterior tibial. No peripheral edema is noted bilaterally. Lower extremities are warm and dry to touch, equal in color and appearance. SKIN: Shows warm and dry, good turgor. No edema. No sores, rashes or bruising throughout. Procedure: Procedure: Options were discussed with the patient. Patient chart reviews his current medication regimen updated current review of systems updated today as well. We will proceed with a lumbar epidural steroid injection today with fluoroscopic guidance. Risks were discussed including but not limited to: Bleeding, infection, possibility of epidural hematoma and subsequent neurological compromise, dural puncture, headaches, spinal cord and/or nerve damage, side effects of steroid medication, and poor results regarding pain control. Patient understands and wished to proceed. Patient will return to clinic in approximate 2 weeks for follow-up, was counseled as return appointment, activity level, and side effect to be aware of. Medication Injected: Med Injected: Procedure is lumbar epidural steroid injection under local anesthetic using sterile prep and drape at the L4-5 level using C-arm fluoroscopic guidance in both AP and lateral views medications injected is 120 mg Depo-Medrol +10mL preservative-free normal saline and 2 mL contrast- condition at discharge is stable patient tolerated procedure well had no complications. Condition at Discharge: Condition at Discharge: Condition at discharge is stable, patient tolerated the procedure well and had no complications. JAROD FABIAN MD Jul 26, 2021 11:35
--- NOTE | 2021-07-26 11:36 | PDOC4 ---
Procedure Note: ICD 10 Code: ICD 10 Code: M54.16 M51.36 Procedure Note: Patient was consented for lumbar epidural steroid injection with fluoroscopic guidance. Risks were discussed including but not limited to: Bleeding, infection, possibility of epidural hematoma and subsequent neurological compromise, dural puncture, headaches, spinal cord and/or nerve damage, side effects of steroid medication, and poor results regarding pain control. Patient understands and wished to proceed. Procedure is lumbar epidural steroid injection under local anesthetic using sterile prep and drape at the L4 5 level using C-arm fluoroscopic guidance in both AP and lateral views medications injected is 120 mg Depo-Medrol +10mL preservative-free normal saline and 2 mL contrast- condition at discharge is stable patient tolerated procedure well had no complications. JAROD FABIAN MD Jul 26, 2021 11:36
== END | disposition home or self-care (01) ==
LOC: PNCL 10:55
PROVIDERS: ATTEND Anesthesiology
DX: M51.16 Intervertebral disc disorders with radiculopathy, lumbar region (principal); M50.10 Cervical disc disorder with radiculopathy, unspecified cervical region; M19.012 Primary osteoarthritis, left shoulder; M75.102 Unspecified rotator cuff tear or rupture of left shoulder, not specified as traumatic; I10 Essential (primary) hypertension; J44.9 Chronic obstructive pulmonary disease, unspecified; K21.9 Gastro-esophageal reflux disease without esophagitis; Z87.891 Personal history of nicotine dependence; Z88.1 Allergy status to other antibiotic agents; Z90.49 Acquired absence of other specified parts of digestive tract; Z98.890 Other specified postprocedural states
CPT/HCPCS: 62323; J1030; J1040; Q9965

== ENCOUNTER 2021-08-12 22:38 | Emergency (ER) | payer MEDICARE, OTHER ==
[~2021-08-12] VITALS: Ht 182.9 cm; Wt 78.4 kg
[2021-08-12 22:38] VITALS: BP 92/69
[~2021-08-12 22:38] MED LIST changes: +AMIODARONE 150 MG/3 ML VIAL ONE; +CALCIUM CHLORIDE 1,000 MG/10 ML DISP.SYRIN ONE; +EPINEPHrine SYRINGE 1 MG/10 ML SYRINGE ONE; -IOHEXOL 180 MG/ML 10 ML VIAL. ONE; +MAGNESIUM SULFATE PREMIX 1 GM/100 ML BAG. IV ONE; +SODIUM BICARB ADULT 8.4% 50 MEQ/50 ML DISP.SYRIN. ONE; +TIZA-75 PO; -TIZA4TAB2 PO; -methylPREDNISolone ACETATE 40 MG/ML VIAL. ONE; -methylPREDNISolone ACETATE 80 MG/ML VIAL. ONE
--- NOTE | 2021-08-12 23:53 | PHYS DOC ---
Past Medical History Past Medical History: Hypertension Additional Past Medical Histor: Multiple myeloma Past Medical History Limited secondary to cardiopulmonary arrest Past Surgical History: No Surgical History Past Surgical History Limited secondary to cardiopulmonary arrest Smoking Status: Former Smoker Social History Limited secondary to cardiopulmonary arrest General Adult EDM: Chief Complaint: CPR/FULL ARREST HPI: HPI: 75-year-old male presents via EMS in cardiopulmonary arrest after EMS was called to [facility] for heart catheterization secondary to STEMI. Per [facility]'s documentation patient had awoken suddenly with chest pain that started at approximately 5 this evening. Patient reportedly had history of hypertension with no known cardiac history and was currently being treated for multiple myeloma. Patient underwent evaluation with concern for RCA infact based on EKG. ISTAT Troponin per documentation was WNL at 0.01 CXR also without acute process. Morphine 4mg IVP , Zofran 4mg IVP, ASA 324mg, and Brilinta 180mg was provided along with heparin 5000 units subcutaneously. EMS reports upon transport patient suddenly went into V. fib arrest with loss of pulse. EMS defibrillated x3 each time with return of spontaneous circulation. EMS diverted to [facility] for stabilization. History of present illness limited secondary to cardiopulmonary arrest Review of Systems: Review of Systems: Review of systems limited secondary to cardiopulmonary arrest. Heart Score: C/O Chest Pain: N/A Allergies: Allergies: Allergies Coded Allergies Type Severity Reaction Last Updated Verified levofloxacin Allergy Intermediate C-DIFF 03/12/18 Yes Physical Exam: PE: Constitutional: Well developed, unresponsive HENT: Normocephalic, atraumatic, Right nasopharyngeal airway in place Eyes: Pupils reactive, conjunctiva normal, no discharge Neck: Normal range of motion, no tenderness, supple Lungs & Thorax: Agonal respirations, assisted with bag valve mask, clear upper airway sounds Abdomen: Soft, mild distention of abdomen Skin: Warm, dry, no erythema, no rash Extremities: No deformity, no edema Neurologic: GCS 3, limited Current Patient Data: Labs: Laboratory Tests Test 08/12/21 22:49 Glucose (Fingerstick) 127 mg/dL (70-99) H EKG: EKG: @2243 NSR with sinus arrhythmia at 92bpm, ST elevation II-III and aVF and V3 with reciprocal depression in I and aVL and V5-V6; QRS 82ms, QT/QTc 370/463ms Radiology/Procedures: Radiology/Procedures: [] Course & Med Decision Making: Course & Med Decision Making Patient with Notified Dr. Ocasio who is on-call for Dr. Rodriguez regarding patient's . Dr. Ocasio in agreement with signing certificate. Discussed findings and plan with family, who acknowledge understanding and agreement. Dragon Disclaimer: Dragon Disclaimer: This electronic medical record was generated, in whole or in part, using a voice recognition dictation system. Departure Departure Impression: Primary Impression: Cardiopulmonary arrest Disposition: 20 Condition: Referrals: GEO RODRIGUEZ MD (PCP) JENSEN MALDONADO DO Aug 12, 2021 23:53
--- NOTE | 2021-08-13 03:27 | EKG ---
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
[2021-08-13] MEDS ORDERED: ROCURONIUM 50 MG/5 ML VIAL. ONE (04:22)
[2021-08-13] MEDS ORDERED: ETOMIDATE 20 MG/10 ML VIAL. IV ONE (04:22)
== END 2021-08-12 23:11 ==
LOC: ER 22:38
DX: I46.9 Cardiac arrest, cause unspecified (principal); I10 Essential (primary) hypertension; Z87.891 Personal history of nicotine dependence; Z88.1 Allergy status to other antibiotic agents
CPT/HCPCS: 31500; 82962; 94760; 99285; J0171; J0282; J3475; J3490; 93005